=== PATIENT | male | born 1995 | race African-American/Black ===

== ENCOUNTER 2020-03-18 14:39 | Emergency (ER) | payer OTHER ==
[~2020-03-18] VITALS: Ht 175.3 cm; Wt 63.5 kg
[2020-03-18 14:50] VITALS: BP 123/79
--- NOTE | 2020-03-18 14:50 | NUR ---
ED Nurse Note: Pt walked in from home c/o right hand laceration after punching a glass picture frame 5 minutes before arrival. Pt not up to date with tetanus. Respirations even and unlabored on room air. Vitals stable as documented. A+Ox4, speaking in complete sentences.
--- NOTE | 2020-03-18 14:58 | Emergency Room Report ---
History of Present Illness General Chief Complaint: Laceration Source: Patient Present Illness HPI Disclaimer: Please note that this report is being documented using [employer]. This can lead to erroneous entry secondary to incorrect interpretation by the dictating instrument. HPI: 24-year-old [id number] male presents for evaluation of right hand injury. The patient punched a picture frame approximate 1 hour prior to arrival. This had a glass covering and caused a laceration over the PIPJ of the right ring finger and over the MCP J at the base of the right pinky. Has full range of motion and sensation in the fingers. States he pulled out a large shard of glass. No other foreign body sensation. No other injury sustained. Cannot recall last tetanus. PMH: Reviewed PSH: Reviewed Allergies: Reviewed Social Hx: Reviewed Allergies: Coded Allergies: No Known Allergies (Unverified , 03/18/20) COVID-19 Screening Contact w/high risk pt: No Experienced COVID-19 symptoms?: No COVID-19 Testing performed MONORAIL HOOKER: No Nursing Documentation-PMH Past Medical History: No Stated History Review of Systems All Other Systems: negative except mentioned in HPI Physical Exam Vital Signs Date Time Temp Pulse Resp B/P (MAP) Pulse Ox O2 Delivery O2 Flow Rate FiO2 03/18/20 14:49 98.6 71 18 119/79 (92) 96 Room Air General: Awake and alert, no acute distress HEENT: NC/AT. EOMI. Resp: Normal work of breathing Skin: Approximate 1 cm superficial laceration over the PIPJ right ring finger. No active bleeding or debris noted. Deeper laceration approximately 1.5 to 2 cm over the MCP J right pinky finger no active bleeding. MSK: Normal tone and bulk. Moving all extremities. Full flexion extension in all digits of the right hand. 2+ radial pulse. Brisk capillary refill. Sensation intact over the radial and ulnar aspects of the digits. Neuro: Awake and alert. Mentating appropriately Procedures Laceration/Wound Repair Laceration/Wound Repair : Consent: Verbal Wound Location: upper extremity Wound's Depth, Shape: superficial, linear Wound Length (cm): 1 Wound Explored: clean Irrigated w/ Saline (ccs): 500 Betadine Prep?: Yes Anesthesia: 1% Lidocaine Volume Anesthetic (ccs): 3 Wound Debrided: None Wound Repaired With: sutures, Dermabond Suture Size/Type: 4:0, proline Number of Sutures: 5 Layer Closure?: No Sterile Dressing Applied?: Yes Patient Tolerated: Well Medical Decision Making Diagnostic Impression: Primary Impression: Laceration ER Course 24-year-old male presents for evaluation of finger lacerations. X-ray obtained to evaluate for foreign bodies. No fracture or radiopaque foreign bodies identified. Tetanus updated. 5 simple interrupted sutures placed over the laceration over the pinky finger and the superficial wound over the ring finger was closed with Dermabond. Tolerated procedure well. No complications. Wound was cleaned and sterile dressing applied. Will return in 5 to 7 days for suture removal or be seen in another outside clinic. Discussed wound care. He understands and agrees with this treatment plan. Other X-Ray Diagnostic Results Other X-Ray Diagnostic Results : X-Ray ordered: Right hand # of Views/Limited Vs Complete: 3 View Indication: Pain EP Interpretation: Yes Interpretation: no dislocation, no fractures, other - No foreign bodies, soft tissue injury Impression: Other - Soft tissue injury, no foreign body Electronically Signed by: Electronically signed by Dr. Demetrio Bunch MD Last Vital Signs Date Time Temp Pulse Resp B/P (MAP) Pulse Ox O2 Delivery O2 Flow Rate FiO2 03/18/20 14:49 98.6 71 18 119/79 (92) 96 Room Air Disposition: HOME, SELF-CARE Condition: Stable Demetrio Bunch MD Mar 18, 2020 14:58
[2020-03-18] MEDS ORDERED: Lidocaine 1% Plain 30 ml INJ ONE (15:00)
[2020-03-18] MEDS ORDERED: Tetanus/Diptheria/Pertussis IM ONE (15:00)
--- NOTE | 2020-03-18 15:30 | NUR ---
ED Nurse Note: pt refused tetanus shot
--- NOTE | 2020-03-18 16:05 | Diagnostic Imaging Report ---
EXAM: XR Right Hand, 3 Views CLINICAL HISTORY: Right hand injury. Laceration to fifth digit. Evaluate for foreign body. TECHNIQUE: Frontal, lateral, and oblique views of the right hand. COMPARISON: No relevant prior studies available. FINDINGS: Bones/joints: Unremarkable. No visible displaced fracture. No dislocation. No osseous erosions. Visualized joint spaces appear unremarkable. Soft tissues: Unremarkable. No radiopaque foreign body. IMPRESSION: No acute radiographic findings. No radiodense foreign body.
[2020-03-18 17:00] VITALS: BP 129/72
--- NOTE | 2020-03-18 17:00 | NUR ---
ED Nurse Note: Wound wrapped. Pt cleared by health care Provider for discharge. DC instructions/prescription were given and explained to pt and verbalized understanding of teachings. All medical devices such as ID band removed. Pt is AAO x4, ambulatory and left with all personal belongings.
== END 2020-03-18 17:00 | disposition home or self-care (01) ==
LOC: EMR 15:01
DX: S61.214A Laceration without foreign body of right ring finger without damage to nail, initial encounter (principal); S61.216A Laceration without foreign body of right little finger without damage to nail, initial encounter; W25.XXXA Contact with sharp glass, initial encounter; Y93.89 Activity, other specified; Y92.9 Unspecified place or not applicable
CPT/HCPCS: 12001; 73130; J2001; Z7502; 90471; 90715; 99283